=== PATIENT | male | born 1945 | race Two or more races ===

== ENCOUNTER 2021-08-25 08:26 | Outpatient (CLI) | payer OTHER | END 2021-08-25 08:34 | disposition home or self-care (01) | LOC: TOM 08:26 | PROVIDERS: ATTEND Internal Medicine Gastroenterology | DX: K56.600 Partial intestinal obstruction, unspecified as to cause (principal); R19.5 Other fecal abnormalities; J44.9 Chronic obstructive pulmonary disease, unspecified; I25.10 Atherosclerotic heart disease of native coronary artery without angina pectoris ==